=== PATIENT | female | born 1940 | race Caucasian/White ===

== ENCOUNTER → 2018-04-27 | Outpatient (CLI) | payer MEDICARE ==
[~2018-04-27] MED LIST: GADOBUTROL 7.5 MMOL/7.5 ML PFS ONE; LORazepam 1MG TABLET ONE
== END | disposition home or self-care (01) ==
LOC: CFH 12:01
PROVIDERS: ATTEND Radiology Radiation Oncology
DX: R90.82 White matter disease, unspecified (principal); C79.31 Secondary malignant neoplasm of brain; I12.9 Hypertensive chronic kidney disease with stage 1 through stage 4 chronic kidney disease, or unspecified chronic kidney disease; N18.3 Chronic kidney disease, stage 3 (moderate)
CPT/HCPCS: 70553; 82565; A9585

== ENCOUNTER 2018-07-06 08:02 | Outpatient (CLI) | payer MEDICARE | END 2018-07-06 23:59 | disposition home or self-care (01) | LOC: ROC 08:02 | PROVIDERS: ATTEND Radiology Radiation Oncology | DX: Z02.9 Encounter for administrative examinations, unspecified (principal) ==